=== PATIENT | male | born 1960 | race Caucasian/White ===

== ENCOUNTER → 2024-01-21 10:13 | Outpatient (REF) | payer MEDICARE, OTHER, SELFPAY | LOC: RCS 10:13 | PROVIDERS: ATTENDING PHYSICIAN Family Medicine | DX: R00.2 Palpitations (principal) | CPT/HCPCS: 93225; 93226 ==

== ENCOUNTER → 2024-12-06 09:18 | Outpatient (REF) | payer MEDICARE, OTHER, SELFPAY ==
[2024-12-06 11:06] LABS: ALT (SGPT) 89 U/L (0-50); AST (SGOT) 45 U/L (17-59); Albumin 4.4 g/dl (3.5-5.0); Alkaline Phosphatase 244 U/L (38-126); Blood Urea Nitrogen 18 mg/dl (9-20); Calcium 9.6 mg/dl (8.4-10.2); Carbon Dioxide 24 mmol/L (22-30); Chloride 106 mmol/L (98-107); Glucose 92 mg/dl (70-99); Potassium 4.4 mmol/L (3.5-5.1); Sodium 139 mmol/L (135-145); Total Protein 6.3 g/dl (6.3-8.2); eGFR > 60.00
[2024-12-06 11:37] LABS: PSA, Total - Screen 0.71 ng/ml (0.0-4.0)
[2024-12-06 14:30] LABS: Glycohemoglobin (HgbA1c) 5.1 % (4.0-5.6)
== END ==
LOC: REG 09:18
PROVIDERS: ATTENDING PHYSICIAN Family Medicine
DX: E78.2 Mixed hyperlipidemia (principal); R73.01 Impaired fasting glucose; Z12.5 Encounter for screening for malignant neoplasm of prostate
CPT/HCPCS: 36415; 80053; 83036; G0103